=== PATIENT | male | born 1985 | race Caucasian/White ===

== ENCOUNTER 2019-07-05 11:18 | Emergency (ER) | payer BC ==
[~2019-07-05] VITALS: Ht 172.7 cm; Wt 131.5 kg
[2019-07-05] MEDS ORDERED: PRILOSEC OTC20 MG PO (11:43)
[2019-07-05] MEDS ORDERED: ZESTRIL20 MG PO (11:43)
[2019-07-05 11:48] LABS: BASOPHILS 0.8 % (0.0-2.0); EOSINOPHILS 6.1 % (0.0-3.0); HEMATOCRIT 48.8 % (42.0-52.0); HEMOGLOBIN 17.1 gm/dL (14.0-18.0); MCH 29.7 pg (26.0-34.0); MCHC 35.1 g/dL (28.0-37.0); MCV 84.7 fL (80.0-100.0); MONOCYTES 6.4 % (1.0-8.0); PLATELET COUNT 255 thou/uL (150-400); POLYS 49.7 % (36.0-66.0); RBC 5.76 mil/uL (4.50-6.00); RDW 13.7 % (10.5-14.5); WBC 8.1 thou/uL (4.0-11.0)
[2019-07-05 11:51] LABS: ANION GAP 11 mmol/L (7-16); BUN 16 mg/dL (7-18); CALCIUM 9.1 mg/dL (8.5-10.1); CHLORIDE 101 mmol/L (98-107); CO2 25 mmol/L (21-32); CREATININE 1.1 mg/dL (0.7-1.3); GLUCOSE 150 mg/dL (74-106); SODIUM 137 mmol/L (136-145)
[2019-07-05 12:00] LABS: ALBUMIN 4.4 g/dL (3.4-5.0); SGOT 24 U/L (15-37); SGPT 41 U/L (30-65); TOTAL BILIRUBIN 0.9 mg/dL (<0.1-1.0); TOTAL PROTEIN 8.2 g/dL (6.4-8.2); TROPONIN-I <0.06 ng/mL (<0.06)
--- NOTE | 2019-07-05 13:21 | EKG ---
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
[2019-07-05 13:37] VITALS: BP 132/78
--- NOTE | 2019-07-06 08:03 | EKG ---
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: [facility] : 1985 Requested By: Marvel Brambila Order Number: [id number] MD: Mendoza Ring Measurements Intervals [place] Rate: 98 P: 36 [place]: 166 QRS: 1 QRSD: 83 T: 16 QT: 320 QTc: 409 Interpretive Statements Sinus rhythm Poor R wave progression Compared to ECG 07/05/2019 11:25:16 No significant change was found Electronically Signed On 07-06-2019 8:01:26 CDT by Mendoza Ring [email or web address] <ELECTRONICALLY SIGNED> By: Mendoza Ring MD, [facility] 07/06/19 0801 1324 1324 Mendoza Ring MD, [facility] /EPI
== END 2019-07-05 13:46 | disposition home or self-care (01) ==
LOC: ER 11:18
PROVIDERS: Emergency Medicine
DX: R07.89 Other chest pain (principal); R06.02 Shortness of breath; I10 Essential (primary) hypertension; K21.9 Gastro-esophageal reflux disease without esophagitis

== ENCOUNTER → 2019-07-07 | Outpatient (CLI) | payer BC, OTHER ==
[~2019-07-07] MED LIST: PRILOSEC OTC20 MG PO; ZESTRIL20 MG PO
== END ==
LOC: SJCVCIMAG 10:25
PROVIDERS: ATTEND Internal Medicine Cardiovascular Disease
DX: R07.9 Chest pain, unspecified (principal); R06.00 Dyspnea, unspecified; I10 Essential (primary) hypertension; E78.5 Hyperlipidemia, unspecified; E11.9 Type 2 diabetes mellitus without complications; E66.9 Obesity, unspecified; J45.909 Unspecified asthma, uncomplicated

== ENCOUNTER → 2020-05-08 | Outpatient (CLI) | payer OTHER | LOC: CAT 10:38 | PROVIDERS: ATTEND Internal Medicine Cardiovascular Disease | DX: Z13.6 Encounter for screening for cardiovascular disorders (principal); I25.10 Atherosclerotic heart disease of native coronary artery without angina pectoris; E78.00 Pure hypercholesterolemia, unspecified ==